=== PATIENT | male | born 1960 | race Asian ===

== ENCOUNTER 2021-09-21 12:35 | Outpatient (CLI) | payer BC ==
[~2021-09-21] VITALS: Ht 176.5 cm; Wt 99.8 kg
[~2021-09-21 12:35] MED LIST: ALBUTEROL 90 MCG/ACT 8GM HFA INHALER INH PRN; ALBUTEROL SULFATE 2.5 MG/0.5 ML INH NEB SOLN INH PRN; EPINEPHrine INJ 1 MG/ML 1ML AMP IM PRN; NS 1,000 ML IV SCH; diphenhydrAMINE 50MG/ML VIAL (J1200) IV PRN; methylPREDNISolone 125MG 2ML VIAL IV PRN
[2021-09-21] MEDS ORDERED: SOTROVIMAB 500 MG in NS 100 ML IV ONE (14:00)
[2021-09-21 14:14] VITALS: BP 128/67
[2021-09-21 14:44] VITALS: BP 117/68
[2021-09-21 15:44] VITALS: BP 131/71
== END 2021-09-21 16:04 | disposition home or self-care (01) ==
LOC: M OPCLI4PR 12:35 → M OPCLI4 12:35 → M 4MAIN 12:55 → M OPCLI4 16:04
PROVIDERS: ATTEND Family Medicine
DX: U07.1 COVID-19 (principal)

== ENCOUNTER → 2022-10-18 | Outpatient (CLI) | payer BC, OTHER | LOC: M SLEEP HO 07-03 09:46 | PROVIDERS: ATTEND Physician Assistant | DX: G47.33 Obstructive sleep apnea (adult) (pediatric) (principal) ==